=== PATIENT | female | born 1945 | race Caucasian/White ===

== ENCOUNTER 2022-02-14 12:21 | Emergency (ER) | payer MEDICARE, SELFPAY ==
[2022-02-14 12:31] VITALS: BP 125/66; PULSE 80; RESP 18; TEMP 37.3; O2SAT 98
--- NOTE | 2022-02-14 12:34 | ED.URI ---
HPI - URI/Sore Throat General Chief Complaint: Skin/Abscess/Foreign Body Stated Complaint: Swollen gland - Time Seen by Provider: 02/14/22 12:46 Source: patient and RN notes reviewed Mode of arrival: ambulatory Limitations: no limitations History of Present Illness HPI Narrative: 76-year-old female who is currently undergoing chemotherapy presents concern for a swollen area under her right ear. Reports that it gets bigger at times, the size of a golf ball and then will get a little bit smaller. She reports it is tender to touch. She reports rhinorrhea without nasal congestion. Her reports rhinorrhea has been chronic. She denies fever, aches, chills, sweats, difficulty swallowing MD elicited complaint: other Related Data Home Medications Medication Instructions Recorded Confirmed duloxetine 20 mg capsule,delayed 20 mg PO BID 02/14/22 02/14/22 release famotidine 20 mg tablet 20 mg PO BID 02/14/22 02/14/22 levothyroxine 125 mcg tablet 125 mcg PO DAILY 02/14/22 02/14/22 lisinopril 10 mg tablet 10 mg PO DAILY 02/14/22 02/14/22 sertraline 100 mg tablet 100 mg PO DAILY 02/14/22 02/14/22 warfarin 1 mg tablet 1 mg PO DAILY 02/14/22 02/14/22 Allergies Allergy/AdvReac Type Severity Reaction Status Date / Time morphine AdvReac Confusion Verified 02/14/22 12:49 Review of Systems Review of Systems: CONSTITUTIONAL: Denies malaise, chills, sweats, or fever. EYES: Denies visual changes, redness, or discharge. ENT: Reports rhinorrhea, congestion, sinus pain, otalgia and sore throat. Reports swollen, tender area under her right ear CARDIOVASCULAR: Denies chest pain, palpitations, or edema. RESPIRATORY: Reports cough. Denies dyspnea. GASTROINTESTINAL: Denies abdominal pain, nausea, vomiting, diarrhea SKIN: Denies rash or itching. MUSCULOSKELETAL: Denies myalgia. NEUROLOGIC: Denies headache. All systems reviewed & are unremarkable except as noted in HPI and below PMFSH Comments At time of signature, agree with nursing past medical, surgical, social and family history. There is no relevant family history pertinent to the presenting complaint Exam Narrative: GENERAL: Well-appearing, well-nourished, and in no acute distress. HEAD: Normocephalic EYES: PERRLA, conjunctivae clear ENT: Nares clear, clear discharge. Mucous membranes moist. TM pearly garcía with sharp light reflex bilaterally; no tragal tenderness. Oropharynx not erythematous without lesions. Tonsils not enlarged and without exudate, no drooling, no hoarseness, no trismus, uvula midline. Mildly edematous is slightly tender non erythematous or warm area under the right ear NECK: Supple. No lymphadenopathy CHEST: Clear to auscultation, breath sounds equal. No wheezing, rhonchi, rales, or stridor. No respiratory distress, speaks in full sentences. HEART: Regular rate and rhythm. No murmur heard. SKIN: Warm, dry, no rash. NEURO: Alert and oriented x3. PSYCH: Normal mood and affect Course Course Emergency Course: Patient is aware of diagnosis, understands and agrees to treatment plan. Anticipatory guidance given. Patient agrees to follow-up as directed and is aware of reasons to seek care at the emergency department. Portions of this record may have been created with voice recognition software Level of Care: Express Care Visit Vital Signs Vital signs: Reviewed. MDM - URI/Sore Throat MDM Narrative Medical decision making narrative: Differential diagnosis considered: Lymphadenopathy, sialadenitis, mumps, Kohler virus, strep pharyngitis, allergic rhinitis, upper respiratory tract infection, sinusitis, rhinosinusitis, nasopharyngitis. viral pharyngitis, otitis media, otitis externa, pneumonia, bronchitis, viral cough syndrome, viral syndrome, and influenza. Exam findings show no acute concerns or changes; patient is non-toxic appearing and is in no distress. Patient is appropriate for outpatient treatment and follow-up. Lab Data Attestation: I reviewed the patient's lab r
== END 2022-02-14 13:00 | disposition home or self-care (01) ==
PROVIDERS: Emergency Provider Nurse Practitioner; PCP Internal Medicine Geriatric Medicine
DX: K11.20 Sialoadenitis, unspecified (principal); Z79.01 Long term (current) use of anticoagulants
CPT/HCPCS: 99213; G0463